=== PATIENT | female | born 1975 | race Caucasian/White ===

== ENCOUNTER 2022-10-11 21:20 | Emergency (ER) | payer BC, OTHER ==
[2022-10-11] MEDS ORDERED: Ondansetron 4 MG Tab.DIS PO ONE (21:45)
[2022-10-11] MEDS ORDERED: Morphine 4 MG/ML Syringe IM ONE (21:45)
== END 2022-10-11 22:00 | disposition home or self-care (01) ==
LOC: JD.ED 21:20
DX: R10.13 Epigastric pain (principal)
CPT/HCPCS: 96372; 99283; A9270; J2270